=== PATIENT | female | born 1955 | race Caucasian/White ===

== ENCOUNTER → 2019-05-12 | Outpatient (CLI) | payer MEDICARE ==
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
== END | disposition home or self-care (01) ==
LOC: KCIC MRI 11:13
PROVIDERS: ATTEND Orthopaedic Surgery
DX: M19.022 Primary osteoarthritis, left elbow (principal)
CPT/HCPCS: 73221

== ENCOUNTER → 2022-01-22 | Outpatient (CLI) | payer MEDICARE ==
--- NOTE | 2022-01-23 10:49 | RAD ---
Bilateral digital screening 2-D and 3-D (digital breast tomosynthesis) mammogram: Reason for examination: Routine screening. Comparison: Mammogram from 09/25/2017. Interpretation was made with the benefit of CAD. FINDINGS: Breast density: Category B. There are scattered areas of fibroglandular density. No suspicious breast mass, malignant appearing calcifications, or architectural distortion is seen. IMPRESSION: No evidence of malignancy. Assessment: BI-RADS 1. Negative. Recommendation: Routine screening mammograms. The patient will receive a letter with the results in the mail. Patient information will be entered i nto the mammography reminder system with a target recall date for the next mammogram. A reminder abiodun er will be generated. Electronically signed by: Lima Lange MD (01/23/2022 10:47 AM) [id number]
== END ==
LOC: MAMMO 10:26
PROVIDERS: ATTEND Family Medicine
DX: Z12.31 Encounter for screening mammogram for malignant neoplasm of breast (principal)
CPT/HCPCS: 77063; 77067